=== PATIENT | male | born 1945 | race Caucasian/White ===

== ENCOUNTER 2016-05-18 06:25 | Emergency (ER) | payer OTHER ==
[2016-05-18 06:49] VITALS: BP 159/96; PULSE 105; TEMP 98.5; BMI 30.1
[2016-05-18] MEDS ORDERED: IBUPROFEN 600 MG TABLET (FP) PO ONE ×2 (07:53→08:05)
[2016-05-18] MEDS ORDERED: MAGNESIUM CITRATE 300 ML BOTTLE PO ONE (07:53)
--- NOTE | 2016-05-18 07:53 | PDOC ---
History of Present Illness - General History Source: Patient Exam Limitations: No Limitations - History of Present Illness Initial Comments: CHIEF COMPLAINT: 71 y/o afebrile male with PMH HLD, Urinary retention c/o constipation for the past 2 days. HISTORY OF PRESENT ILLNESS: The patient states he is passing stool but very small amounts. 2 days ago he had hemorrhoid surgery. He has taken 4 dulcolax tablets since the surgery. He states he is eating very little because he is scared of getting "backed up" and having to push. He also admits he is taking a narcotic pain medication for his post surgical pain. He denies fever, chills , n/v, CP, SOB, abd pain. He is passing gas. Vital signs on arrival are notable for pulse of 105. REVIEW OF SYSTEMS: GENERAL/CONSTITUTIONAL: No fever/chills. No weakness. No weight change. GASTROINTESTINAL: No nausea, vomiting, abd pain. +constipation. GENITOURINARY: No dysuria, frequency, or change in urination. MUSCULOSKELETAL: No joint or muscle swelling or pain. No neck or back pain. SKIN: No rash or easy bruising. NEUROLOGIC: No headache, vertigo, loss of consciousness, or loss of sensation. PHYSICAL EXAM: GENERAL: The patient is awake, alert, and fully oriented, in no acute distress. He is well appearing and ambulatory. HEAD: Normal with no signs of trauma. ENT: Pupils equal, round and reactive to light, extraocular movements intact, sclera anicteric, conjunctiva clear. Neck supple. LUNGS: Clear to auscultation bilaterally. Normal excursion. No respiratory distress or use of accessory muscles. CV: RRR, S1/S2, no MRG. Cap refill < 2 sec. ABDOMEN: Soft, non-distended, non-tender even to deep palpation, no hepatomegaly or splenomegaly, no masses. Normal BS x 4. EXTREMITIES: Normal range of motion, no edema. NEUROLOGICAL: Normal speech, normal gait. CN II-XII grossly intact. PSYCH: Normal mood, normal affect. SKIN: Warm, dry, normal turgor, no rashes or lesions noted. <Flores Moore - Last Filed: 05/18/16 07:57> <Therese Zhao - Last Filed: 05/22/16 08:51> - General Chief Complaint: Constipation Stated Complaint: CONSTIPATION Time Seen by Provider: 05/18/16 07:18 Past History - Past Medical History Hypercholesterolemia: Yes - Surgical History Abdominal Surgery: Yes (HERNIA) - Immunization History Immunization Up to Date: Yes - Psycho/Social/Smoking Cessation Hx Anxiety: Yes Suicidal Ideation: No Smoking Status: No Smoking History: Never smoked Number of Cigarettes Smoked Daily: 0 Hx Alcohol Use: Yes (weekends) Substance Use Type: None <Flores Moore - Last Filed: 05/18/16 07:57> <Therese Zhao - Last Filed: 05/22/16 08:51> - Past Medical History Allergies/Adverse Reactions: Allergies Allergy/AdvReac Type Severity Reaction Status Date / Time No Known Allergies Allergy Verified 05/18/16 06:44 Home Medications: Ambulatory Orders Silodosin [Rapaflo] 8 mg PO DAILY 01/30/14 Dutasteride [Avodart] 0.5 mg PO DAILY 03/29/14 Atorvastatin Ca [Lipitor] 10 mg PO HS 05/18/16 *Physical Exam - Vital Signs Last Vital Signs Temp Pulse Resp BP Pulse Ox 98.5 F 105 H 18 159/96 97 05/18/16 06:47 05/18/16 06:47 05/18/16 06:47 05/18/16 06:47 05/18/16 06:47 <Flores Moore - Last Filed: 05/18/16 07:57> - Vital Signs Last Vital Signs Temp Pulse Resp BP Pulse Ox 98.5 F 105 H 18 159/96 97 05/18/16 06:47 05/18/16 06:47 05/18/16 06:47 05/18/16 06:47 05/18/16 06:47 <Therese Zhao - Last Filed: 05/22/16 08:51> ED Treatment Course - Medications Given in the ED: ED Medications Discontinued Medications Generic Name Dose Route Start Last Admin Trade Name Freq PRN Reason Stop Dose Admin Ibuprofen 600 mg 05/18/16 07:53 05/18/16 08:19 Motrin - PO 05/18/16 07:54 600 mg ONCE ONE Administration Magnesium Citrate 300 ml 05/18/16 07:53 05/18/16 08:19 Citroma - PO 05/18/16 07:54 300 ml ONCE ONE Administration <Therese Zhao - Last Filed: 05/22/16 08:51> Medical Decision Making - Medical Decision Making A/P: 71 y/o male with ?constipation s/p hemorrhoid surgery 2 days ago. Informed the patient he has to eat in order to produce stool. Suggested he try to wean himself off of the narcotic pain medication, eat more, drink plenty of water and prune juice, continue taking dulcolax. Will give mag citrate in the ER. INstructed hiim to f/u with his surgeon if symptoms continue and return to the ER with any worsening or concerning symptoms. The patient verbalizes understanding of all instructions, has no further questions and is awaiting discharge. <Flores Moore - Last Filed: 05/18/16 07:57> *DC/Admit/Observation/Transfer <Flores Moore - Last Filed: 05/18/16 07:57> - Attestations Physician Attestion: I reviewed the case with the mid-level practitioner and agree with the mid- level practitioner's assessment, diagnosis and disposition. <Therese Zhao - Last Filed: 05/22/16 08:51> Diagnosis at time of Disposition: Constipation Qualifiers: Constipation type: unspecified constipation type Qualified Code(s): K59.00 - Constipation, unspecified - Discharge Dispostion Disposition: HOME Condition at time of disposition: Good - Referrals Referrals: Cherelle Caraballo MD [Primary Care Provider] - (Call today) - Patient Instructions Printed Discharge Instructions: DI for Constipation Additional Instructions: Discharge Instructions: -Take 600mg of Ibuprofen with food every 6 hours for pain -Continue taking dulcolax as prescribed -Drink plenty of fluids including water and prune juice to help keep bowels moving -Follow up with your doctor if symptoms continue -Return to the ER with any worsening or concerning symptoms Print Language: GUINEAN - Post Discharge Activity Work/School Note: Parent(s) Back to Work Note
[2016-05-18] MEDS ORDERED: MAGNESIUM CITRATE 300 ML BOTTLE ONE (08:07)
== END 2016-05-18 08:26 | disposition home or self-care (01) ==
LOC: JER 06:25
DX: K59.00 Constipation, unspecified (principal); E87.5 Hyperkalemia; F41.9 Anxiety disorder, unspecified
CPT/HCPCS: 99282-25

== ENCOUNTER 2016-11-05 07:56 | Day surgery (SDC) | payer OTHER ==
[2016-11-01 17:40] VITALS: BMI 29.2
[2016-11-05] MEDS ORDERED: PROPOFOL 20 ML ONE (13:11)
[2016-11-05] MEDS ORDERED: LEVOFLOXACIN 500 MG PREMIX BAG IVPB ONE (13:24)
[2016-11-05] MEDS ORDERED: DEXAMETHASONE SOD PHOSPHATE 4 MG/1 ML VIAL ONE (13:34)
[2016-11-05] MEDS ORDERED: ONDANSETRON 4 MG/2 ML VIAL IVPUSH PRN (13:59)
[2016-11-05] MEDS ORDERED: LACTATED RINGERS SOLUTION 1,000 ML IV SCH (14:00)
[2016-11-05] MEDS ORDERED: LEVOFLOXACIN 500 MG IVPB 100 ML IVPB ONE (14:41)
[2016-11-05 15:30] VITALS: TEMP 97.9
--- NOTE | 2016-11-05 16:40 | OP ---
Operative Note - Note: Operative Date: 11/05/16 Pre-Operative Diagnosis: bladder tumor involving right stefani-trigone and ureteral orifice Operation: cystoscopy/right ureteroscopy/trans urethral resection and vaporization of bladder tumor Findings: tumor imvolving right stefani-trigone with ureteral orifice involving an area of 8 + cm x 6+ cm Post-Operative Diagnosis: Same as Pre-op Surgeon: David Lozano Anesthesia: General Estimated Blood Loss (mls): 20
[2016-11-05 20:38] VITALS: BP 151/100; PULSE 72
--- NOTE | 2016-11-06 09:05 | OP ---
DATE OF OPERATION: 11/05/2016 PREOPERATIVE DIAGNOSIS: Bladder tumor involving the right hemitrigone and right ureteral orifice with a positive fluorescence in situ hybridization urine test. POSTOPERATIVE DIAGNOSIS: Bladder tumor involving the right hemitrigone and right ureteral orifice with a positive fluorescence in situ hybridization urine test. PROCEDURE: Cystoscopy, right ureteroscopy, transurethral resection and transurethral vaporization of bladder tumor utilizing bipolar system. ATTENDING PHYSICIAN: David Li MD ANESTHESIA: General. DESCRIPTION OF OPERATION: The patient was brought to the operating room, placed in supine position on the operating room table. General anesthesia and antibiotics were administered. The patient was then placed in the dorsal lithotomy position and prepped and draped in the usual sterile manner. Cystoscopy was performed. A sessile tumor was noted involving the right hemitrigone to the right sidewall and extending posterior to the posterior wall of the bladder. The right ureteral orifice is involved. Attempts at identifying the right ureteral orifice were unsuccessful. Ureteroscopy was performed, and the right ureteral orifice was ultimately found utilizing a wire. The wire was passed proximally. There was no evidence of involvement of the right distal ureteral orifice. At this point, the resection of the bladder tumor was performed. Resection was performed with care as to maintain the integrity of the right ureteral orifice. Once adequate tissue samples had been retrieved, vaporization of the bladder tumor was performed. An area of 8-10 cm x 8-10 cm was vaporized to the level of the deep muscle tissue. No evidence of perforation was noted. The patient tolerated the procedure very well. The patient was left with a 24-[place] catheter to straight drainage. The patient will be observed in the recovery room for possible discharge home. Estimated blood loss was less than 20 mL. Tariq [id number]
--- NOTE | 2016-11-07 12:27 | PATH ---
Surgical Pathology Report Patient Name: ANGELIKA SEXTON [facility]. Rec. #: [id number] /Age/Gender: 1945 (Age: 71) / M Account: [id number] Location: [facility] SURGICAL Taken: 11/06/2016 Received: 11/06/2016 Reported: 11/07/2016 Physicians: David Lozano Specimen(s) Received BLADDER TUMOR Clinical History Bladder tumor Final Diagnosis BLADDER, TUMOR, TUR: SCANT FRAGMENTS OF HYPERPLASTIC UROTHELIAL MUCOSA WITH FOCAL PAPILLARY STRUCTURE (SEE COMMENT). 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 No lamina propria invasion is identified. Muscularis propria (detrusor) is present, free of carcinoma. Clinical, cystoscopic correlations and follow up are suggested. Electronically Signed Omer Gregorio M.D. Gross Description Received in formalin labeled "bladder tissue" are 3 coleman soft tissue fragments ranging from 0.3-0.6 cm in greatest dimension. The specimens are submitted in toto in one cassette. 11/06/201611/06/2016
== END 2016-11-05 17:15 | disposition home or self-care (01) ==
LOC: JASU-SURG 07:56
PROVIDERS: ATTEND Urology
PROC: 0T5B8ZZ Destruction of Bladder, Via Natural or Artificial Opening Endoscopic (ICD-10-PCS; principal; 2016-11-05 10:00)
DX: D41.4 Neoplasm of uncertain behavior of bladder (principal)
CPT/HCPCS: 88307-TC; 94760

== ENCOUNTER 2016-11-10 21:46 | Emergency (ER) | payer OTHER ==
[2016-11-10 21:53] VITALS: BP 159/99; PULSE 85; TEMP 98.1; BMI 29.2
--- NOTE | 2016-11-10 21:58 | PDOC ---
Attending Attestation - Resident Resident Name: JoeGlenn ugalde - ED Attending Attestation I have performed the following: I have examined & evaluated the patient, The case was reviewed & discussed with the resident, I agree w/resident's findings & plan, Exceptions are as noted - HPI HPI: 11/11/16 00:16 71 yo M presenting to the ER with a complaint of abdominal and right flank pain No fevers or chills No abdominal distention No vomiting No diarrhea POD #5 s/p resection of bladder tumor (transuretheral) - Physicial Exam PE: 11/11/16 00:17 On examination Pt reports R CVA pain, no tenderness elicited on examination No abd tenderness to palpation (s/p Morphine) RRR CTA - Medical Decision Making 11/11/16 00:17 Will do: Labs including trop and lactate CT abd and pelvis Contact Urology Laboratory Tests 11/10/16 11/10/16 11/10/16 22:30 22:30 22:50 WBC 9.4 Hgb 15.3 Hct 45.6 Plt Count 179 Sodium 136 Potassium 4.3 Chloride 96 L Carbon Dioxide 31 BUN 21 H D Creatinine 1.0 Random Glucose 125 H D Lactic Acid 1.2 Creatine Kinase 75 Troponin I < 0.02 11/11/16 01:20 EXAM: CT ABDOMEN AND PELVIS with contrast HISTORY:Generalized abdominal pain after recent cystoscopy COMPARISON: None. FINDINGS:Lung bases are clear. The visualized cardiac chambers are normal size and configuration. There is mild right hydronephrosis no ureteral stones. Normal liver, gallbladder, pancreas, spleen, adrenal glands and left kidney. The stomach and abdominal small and large bowel are normal. There is no aortic aneurysm. There is no significant retroperitoneal lymphadenopathy. The pelvic small and large bowel are normal. The appendix is normal. The urinary bladder demonstrate irregular wall thickening which could indicate cystitis or possibly muscle hypertrophy from partial outlet obstruction. The prostate gland is moderately enlarged. No pelvic free fluid is identified. There is no significant pelvic lymphadenopathy. IMPRESSION: Bladder wall thickening may be secondary to cystitis or muscular hypertrophy from partial outlet obstruction. Moderate prostate enlargement. Mild right hydronephrosis could indicate a recently passed stone or possibly be secondary to edema at the UVJ. THIS DOCUMENT HAS BEEN ELECTRONICALLY SIGNED Ishan Chavez MD 11/11/2016 00:54 EST Case reviewed with Dr. Jean Li who states patient can be discharged to home Follow up in the office
[2016-11-10] MEDS ORDERED: SODIUM CHLORIDE 1,000 ML IV STA (22:11)
[2016-11-10] MEDS ORDERED: morphine CARPU-JECT 4 MG/1 ML DISP.SYRIN IVPUSH ONE ×2 (22:11→23:48)
[2016-11-10] MEDS ORDERED: ONDANSETRON 4 MG/2 ML VIAL IVPB ONE (22:11)
--- NOTE | 2016-11-10 22:24 | PDOC ---
History of Present Illness - General Chief Complaint: Pain Stated Complaint: STOMACH PAIN Time Seen by Provider: 11/10/16 21:54 History Source: Patient Exam Limitations: Language Barrier - History of Present Illness Initial Comments: 11/10/16 22:19 History taken through andorran phone smasher hand. Patient is a 71M with history of cystoscopy and ureteroscopy 5 days ago and HLD here today complaining of generalized abdominal pain for the last two hours. He is also complaining of associated nausea and non-billious, non-bloody vomiting. He states that the pain came on after a meal. The pain started off as a minor pain, then slowly got worse. He states that moving does not make his pain worse. He denies shortness of breath, chest pain, and any history of htn or other cardiac disorders. He endorses burning with urination for the past day after removal of his catheter. Past History - Past Medical History Allergies/Adverse Reactions: Allergies Allergy/AdvReac Type Severity Reaction Status Date / Time No Known Allergies Allergy Verified 11/10/16 21:52 Home Medications: Ambulatory Orders Silodosin [Rapaflo] 8 mg PO DAILY 01/30/14 Dutasteride [Avodart] 0.5 mg PO DAILY 03/29/14 Atorvastatin Ca [Lipitor] 10 mg PO HS 05/18/16 Acetaminophen W/ Codeine #3 [Tylenol # 3 -] 1 tab PO Q4H #20 tablet MDD 6 Levofloxacin [Levaquin -] 500 mg PO DAILY #7 tablet 11/05/16 Anemia: No Asthma: No Cancer: No Cardiac Disorders: No CVA: No COPD: No CHF: No Dementia: No Diabetes: No GI Disorders: No Disorders: No HTN: No Hypercholesterolemia: Yes Liver Disease: No Seizures: No Thyroid Disease: No - Surgical History Abdominal Surgery: Yes (HERNIA) Appendectomy: No Cardiac Surgery: No Cholecystectomy: No Lung Surgery: No Neurologic Surgery: No Orthopedic Surgery: No - Immunization History Immunization Up to Date: Yes - Psycho/Social/Smoking Cessation Hx Anxiety: Yes Suicidal Ideation: No Smoking Status: No Smoking History: Never smoked Number of Cigarettes Smoked Daily: 0 Hx Alcohol Use: Yes (weekends) Drug/Substance Use Hx: No Substance Use Type: None Hx Substance Use Treatment: No Review of Systems - Review of Systems Comments:: 11/10/16 22:24 GENERAL/CONSTITUTIONAL: No fever or chills. No weakness. HEAD, EYES, EARS, NOSE AND THROAT: No change in vision. No sore throat. CARDIOVASCULAR: No chest pain or shortness of breath RESPIRATORY: No cough, wheezing. GASTROINTESTINAL: Positive for nausea and vomiting. Negative diarrhea or constipation. GENITOURINARY: Positive for burning with urination after surgery. SKIN: No rash NEUROLOGIC: No headache, vertigo, loss of consciousness, or change in strength/ sensation. ALLERGIC/IMMUNOLOGIC: No hives or skin allergy. *Physical Exam - Vital Signs Last Vital Signs Temp Pulse Resp BP Pulse Ox 98.1 F 85 18 159/99 99 11/10/16 21:48 11/10/16 21:48 11/10/16 21:48 11/10/16 21:48 11/10/16 21:48 - Physical Exam Comments: 11/10/16 22:33 GENERAL: Awake, alert, and fully oriented, in no acute distress HEAD: No signs of trauma, normocephalic, atraumatic EYES: PERRLA, EOMI, sclera anicteric, conjunctiva clear ENT: Auricles normal inspection, hearing grossly normal, nares patent, oropharynx clear without exudates. Dry mucosa LUNGS: No distress, speaks full sentences, clear to auscultation bilaterally HEART: Regular rate and rhythm, normal S1 and S2, no murmurs, rubs or gallops, peripheral pulses normal and equal bilaterally. ABDOMEN: Nontender, normoactive bowel sounds. No guarding, no rebound. No masses. No CVA tenderness EXTREMITIES: Normal inspection, Normal range of motion, no edema. No clubbing or cyanosis. NEUROLOGICAL: Cranial nerves II through XII grossly intact. Normal speech, normal gait, no focal sensorimotor deficits SKIN: Warm, Dry, no rashes or lesions noted. ED Treatment Course - LABORATORY CBC & Chemistry Diagram: 11/10/16 22:30 11/10/16 22:30 Medical Decision Making - Medical Decision Making 11/10/16 22:36 Patient is a 71M with history of a bladder tumor with cystoscopy 5 days ago and HLD here today complaining of diffuse abdominal pain. Hypertensive to 159 systolic, not on any blood pressure medication. Vital signs otherwise normal and stable. Pain is out of proportion to exam. Differential diagnosis includes, but is not limited to: UTI, SBO, Gastritis and mesenteric ischemia. Will evaluate with abdominal labs, ekg, trop and CT with contrast. 11/10/16 23:35 EKG shows normal sinus rhythm, normal rate, normal axis. No st elevations or t- wave inversions or depressions. QTc = 440. 11/10/16 23:48 Patient is complaining of pain now in right "kidney". Upright, conversant. Will give morphine for pain control. 11/11/16 01:32 Laboratory Tests 11/10/16 11/10/16 11/10/16 22:30 22:50 23:41 Sodium 136 Potassium 4.3 Chloride 96 L Carbon Dioxide 31 Anion Gap 9 BUN 21 H D Creatinine 1.0 Creat Clearance w eGFR > 60 Random Glucose 125 H D Lactic Acid 1.2 Calcium 9.0 Total Bilirubin 0.4 AST 19 ALT 26 D Alkaline Phosphatase 73 Creatine Kinase 75 Troponin I < 0.02 Total Protein 7.4 Albumin 3.5 Lipase 132 Ur Leukocyte Esterase Trace Urine RBC 41 Urine WBC 10 CMP shows normal lactic acid, normal Cr, neg trop, neg ua. CT Abdomen - Bladder wall thickening may be secondary to cystitis or muscular hypertrophy from partial outlet obstruction. - Moderate prostate enlargement. - Mild right hydronephrosis could indicate a recently passed stone or possibly be secondary to edema at the UVJ Will consult patient's urologist, Blake. 11/11/16 01:48 Patient discussed with Blake, agrees with plan to discharge. Pain controlled. Patient given return precautions, ambulatory, alert and oriented at discharge. *DC/Admit/Observation/Transfer Diagnosis at time of Disposition: Abdominal pain Qualifiers: Abdominal location: generalized Qualified Code(s): R10.84 - Generalized abdominal pain - Discharge Dispostion Disposition: HOME Condition at time of disposition: Good Admit: No - Referrals Referrals: David Lozano MD [Staff Physician] - - Patient Instructions Printed Discharge Instructions: DI for Abdominal Pain-Adult
[2016-11-10] MEDS ORDERED: morphine CARPU-JECT 4 MG/1 ML DISP.SYRIN ONE (22:26)
[2016-11-10 23:24] LABS: BASOPHIL 0.3 % (0-2.0); EOSINOPHIL 1.4 % (0-4.5); MCH 30.1 pg (25.7-33.7); MCHC 33.6 g/dl (32.0-35.9); MEAN CELL VOLUME 89.4 fl (80-96); MEAN PLT VOLUME 10.3 fl (7.5-11.1); NEUTROPHILS 65.2 % (42.8-82.8); PLATELET COUNT 179 K/MM3 (134-434); RDW 14.1 % (11.9-15.9); WHITE BLOOD COUNT 9.4 K/mm3 (4.0-10.0)
[2016-11-10 23:57] LABS: URINE APPEARANCE CLEAR; URINE BILIRUBIN NEGATIVE (NEGATIVE); URINE BLOOD 2+ (NEGATIVE); URINE COLOR STRAW; URINE GLUCOSE (UA) NEGATIVE (NEGATIVE); URINE KETONE TRACE (NEGATIVE); URINE LEUK ESTERASE TRACE (NEGATIVE); URINE NITRITE NEGATIVE (NEGATIVE); URINE PROTEIN NEGATIVE (NEGATIVE); URINE UROBILINOGEN NEGATIVE mg/dL (0.2-1.0)
[2016-11-10 23:58] LABS: ALBUMIN 3.5 g/dl (3.4-5.0); ANION GAP 9 (8-16); BILIRUBIN,TOTAL 0.4 mg/dL (0.2-1.0); CO2 31 mmol/L (21-32); GLUCOSE,RANDOM 125 mg/dL (74-106); SGOT/AST 19 U/L (15-37); SGPT/ALT 26 U/L (12-78); TOT PROT 7.4 g/dl (6.4-8.2)
[2016-11-11] LABS: ALK PHOS 73 U/L (45-117); CPK 75 IU/L (39-308); TROPONIN I < 0.02 ng/ml (0.00-0.05)
[2016-11-11] MEDS ORDERED: morphine CARPU-JECT 4 MG/1 ML DISP.SYRIN ONE (00:04)
[2016-11-11 00:22] LABS: URINE MUCUS RARE; URINE RBC 41 /hpf (0-3); URINE WBC 10 /hpf (3-5)
--- NOTE | 2016-11-11 13:22 | EKG ---
Test Reason : Blood Pressure : / mmHG Vent. Rate : 076 BPM Atrial Rate : 076 BPM P-R Int : 164 ms QRS Dur : 094 ms QT Int : 388 ms P-R-T Axes : 063 -36 036 degrees QTc Int : 436 ms NORMAL SINUS RHYTHM LEFT AXIS DEVIATION CONSISTENT WITH LEFT ANTERIOR FASCICULAR BLOCK INCOMPLETE RIGHT BUNDLE BRANCH BLOCK ABNORMAL ECG WHEN COMPARED WITH ECG OF 02-APR-2014 00:09, NO SIGNIFICANT CHANGE WAS FOUND REPEAT EKG IF CLINICALLY INDICATED Confirmed by ELIZABETH CURTIS MD ([id number]) on 11/11/2016 1:22:46 PM Referred By: Confirmed By:ELIZABETH CURTIS MD
== END 2016-11-11 02:15 | disposition home or self-care (01) ==
LOC: JER 21:46
PROC: 3E033NZ Introduction of Analgesics, Hypnotics, Sedatives into Peripheral Vein, Percutaneous Approach (ICD-10-PCS; principal; 2016-11-10)
PROC: 3E033GC Introduction of Other Therapeutic Substance into Peripheral Vein, Percutaneous Approach (ICD-10-PCS; 2016-11-10)
DX: R10.84 Generalized abdominal pain (principal); N40.0 Benign prostatic hyperplasia without lower urinary tract symptoms; Z98.890 Other specified postprocedural states
CPT/HCPCS: 36415; 74177-TC; 80053; 81003; 81015; 83605; 83690; 84484; 85025; 93005; 93010; 99281-25; 99282-25

== ENCOUNTER 2016-11-11 18:28 | Emergency (ER) | payer OTHER ==
[2016-11-11 18:46] VITALS: BP 150/96; PULSE 91; TEMP 99.1; BMI 29.2
--- NOTE | 2016-11-11 19:04 | PDOC ---
Patient Follow-up (Call Back) - Post ED Follow - Up Reason for Call Back: Radiology (CT of abdomen and pelvis with contrast from last night 11/11/[address] Irwin revealed moderate right renal hydronephrosis with mild to moderate right hydroureter and without evidence of your re-thrust stone. This could be related to urethrovesicle junction edema. No stones seen and urinary bladder. Harshly distended urinary bladder with thickening of its wall, that may be on the basis of cystitis. There is a regular thickening of its posterior and right posterior lateral wall for which further evaluation is recommended to rule out an infiltrative process. Per Dr. Irwin patient presently is in waiting area to be seen will give to attending physician to review. note from Jean Frost from 11/05/16 Pre-Operative Diagnosis : bladder tumor involving right stefani-trigone and ureteral orifice Operation: cystoscopy/right ureteroscopy/trans urethral resection and vaporization of bladder tumor Findings: tumor imvolving right stefani-trigone with ureteral orifice involving an area of 8+ cm x 6+ cm. Discussed these findings with Dr. Elizabeth attending in ED.)
[2016-11-11] MEDS ORDERED: LACTULOSE 20 GM/30 ML UDC (FOR ORAL USE ONLY) PO ONE (19:50)
[2016-11-11] MEDS ORDERED: LACTULOSE 20 GM/30 ML UDC (FOR ORAL USE ONLY) ONE (19:52)
[2016-11-11] MEDS ORDERED: GLYCERIN 1 RECTAL SUPPOSITORY, ADULT PR ONE (20:57)
[2016-11-11] MEDS ORDERED: ONDANSETRON 4 MG TABLET PO ONE (20:58)
[2016-11-11] MEDS ORDERED: ONDANSETRON *ODT* 4 MG TABLET ONE (21:02)
--- NOTE | 2016-11-11 21:22 | PDOC ---
History of Present Illness - General History Source: Patient Exam Limitations: No Limitations - History of Present Illness Initial Comments: 11/11/16 21:26 The patient is a 71-year-old male with a significant past medical history of HLD , and ureteroscopy and cystoscopy 6 days ago, and presents to the emergency department with generalized abdominal pain and constipation for 3 days. He was in the ED at [facility] yesterday for diffuse abdominal pain. He reports the pain is a 5/10 in severity, and radiates to the lower back. He state he took Dulcolax this morning with no significant relief, but notes that he was able to pass gas. He reports of associated nausea, and admits to dry heaving today approximately 20 times. He denies vomiting today. The patient denies chest pain, shortness of breath, headache and dizziness. The patient denies fever, chills, vomit, and diarrhea. The patient denies any urinary changes. Allergies: NKDA Past Surgical History: Abdominal surgery (hernia) Social History: Denies any toxic habits <Keyanna Mooney - Last Filed: 11/11/16 21:26> <Gabi Hu - Last Filed: 11/12/16 05:10> - General Chief Complaint: Pain, Acute Stated Complaint: ABD PAIN Time Seen by Provider: 11/11/16 19:17 Past History <Keyanna Mooney - Last Filed: 11/11/16 21:26> - Past Medical History Anemia: No Asthma: No Cancer: No Cardiac Disorders: No CVA: No COPD: No CHF: No Dementia: No Diabetes: No GI Disorders: No Disorders: No HTN: No Hypercholesterolemia: Yes Liver Disease: No Seizures: No Thyroid Disease: No Other medical history: ENLARGED PROSTATE - Surgical History Abdominal Surgery: Yes (HERNIA) Appendectomy: No Cardiac Surgery: No Cholecystectomy: No Lung Surgery: No Neurologic Surgery: No Orthopedic Surgery: No - Immunization History Immunization Up to Date: Yes - Psycho/Social/Smoking Cessation Hx Anxiety: Yes Suicidal Ideation: No Smoking Status: No Smoking History: Never smoked Number of Cigarettes Smoked Daily: 0 Hx Alcohol Use: Yes (weekends) Drug/Substance Use Hx: No Substance Use Type: None Hx Substance Use Treatment: No <Gabi Hu - Last Filed: 11/12/16 05:10> - Past Medical History Allergies/Adverse Reactions: Allergies Allergy/AdvReac Type Severity Reaction Status Date / Time No Known Allergies Allergy Verified 11/11/16 18:41 Home Medications: Ambulatory Orders Silodosin [Rapaflo] 8 mg PO DAILY 01/30/14 Atorvastatin Ca [Lipitor] 10 mg PO HS 05/18/16 Polyethylene Glycol 3350 [Miralax (For Daily Use) -] 17 gm PO DAILY #1 bottle Review of Systems - Review of Systems Able to Perform ROS?: Yes Comments:: 11/11/16 21:26 CONSTITUTIONAL: Absent: fever, chills, diaphoresis, generalized weakness, malaise, loss of appetite HEENT: Absent: rhinorrhea, nasal congestion, throat pain, throat swelling, difficulty swallowing, mouth swelling, ear pain, eye pain, visual changes CARDIOVASCULAR: Absent: chest pain, syncope, palpitations, irregular heart rate, lightheadedness , peripheral edema RESPIRATORY: Absent: cough, shortness of breath, dyspnea with exertion, orthopnea, wheezing, stridor, hemoptysis GASTROINTESTINAL: Present: (+) abdominal pain, (+) nausea, (+) constipation Absent: abdominal distension, vomiting, diarrhea, melena, hematochezia GENITOURINARY: Absent: frequency, urgency, hesitancy, hematuria, flank pain, genital pain MUSCULOSKELETAL: Absent: myalgia, arthralgia, joint swelling SKIN: Absent: rash, itching, pallor HEMATOLOGIC/IMMUNOLOGIC: Absent: easy bleeding, easy bruising, lymphadenopathy, frequent infections ENDOCRINE: Absent: unexplained weight gain, unexplained weight loss, heat intolerance, cold intolerance NEUROLOGIC: Absent: headache, focal weakness or paresthesias, dizziness, unsteady gait, seizure, mental status changes, bladder or bowel incontinence PSYCHIATRIC: Absent: anxiety, depression, suicidal or homicidal ideation, hallucinations. <Keyanna Mooney - Last Filed: 11/11/16 21:26> *Physical Exam - Vital Signs Last Vital Signs Temp Pulse Resp BP Pulse Ox 99.1 F 91 H 19 150/96 95 11/11/16 18:41 11/11/16 18:41 11/11/16 18:41 11/11/16 18:41 11/11/16 18:41 - Physical Exam Comments: 11/11/16 21:27 GENERAL: Well developed, well nourished. Awake and alert. No acute distress. HEENT: Normocephalic, atraumatic. PERRLA, EOMI. No conjunctival pallor. Sclera are non- icteric. Moist mucous membranes. Oropharynx is clear. NECK: Supple. Full ROM. No JVD. Carotid pulses 2+ and symmetric, without bruits. No thyromegaly. No lymphadenopathy. CARDIOVASCULAR: Regular rate and rhythm. No murmurs, rubs, or gallops. Distal pulses are 2+ and symmetric. PULMONARY: No evidence of respiratory distress. Lungs clear to auscultation bilaterally. No wheezing, rales or rhonchi. ABDOMINAL: Soft. Non-tender. Non-distended. No rebound or guarding. No organomegaly. Normoactive bowel sounds. MUSCULOSKELETAL Normal range of motion at all joints. No bony deformities or tenderness. No CVA tenderness. EXTREMITIES: No cyanosis. No clubbing. No edema. No calf tenderness. SKIN: Warm and dry. Normal capillary refill. No rashes. No jaundice. NEUROLOGICAL: Alert, awake, appropriate. Cranial nerves 2-12 intact. No deficits to light touch and temperature in face, upper extremities and lower extremities. No motor deficits in the in face, upper extremities and lower extremities. Normoreflexic in the upper and lower extremities. Normal speech. Toes are down- going bilaterally. Gait is normal without ataxia. PSYCHIATRIC: Cooperative. Good eye contact. Appropriate mood and affect. <Keyanna Mooney - Last Filed: 11/11/16 21:26> - Vital Signs Last Vital Signs Temp Pulse Resp BP Pulse Ox 99.1 F 91 H 19 150/96 95 11/11/16 18:41 11/11/16 18:41 11/11/16 18:41 11/11/16 18:41 11/11/16 18:41 <Gabi Hu - Last Filed: 11/12/16 05:10> ED Treatment Course - Medications Given in the ED: ED Medications Discontinued Medications Generic Name Dose Route Start Last Admin Trade Name Freq PRN Reason Stop Dose Admin Lactulose 20 gm 11/11/16 19:50 11/11/16 19:55 Cephulac (Oral Use) PO 11/11/16 19:51 20 gm ONCE ONE Administration Ondansetron HCl 4 mg 11/11/16 20:58 11/11/16 21:08 Zofran - PO 11/11/16 20:59 4 mg ONCE ONE Administration <Keyanna Mooney - Last Filed: 11/11/16 21:26> - Medications Given in the ED: ED Medications Discontinued Medications Generic Name Dose Route Start Last Admin Trade Name Michelle PRN Reason Stop Dose Admin Lactulose 20 gm 11/11/16 19:50 11/11/16 19:55 Cephulac (Oral Use) PO 11/11/16 19:51 20 gm ONCE ONE Administration Ondansetron HCl 4 mg 11/11/16 20:58 11/11/16 21:08 Zofran - PO 11/11/16 20:59 4 mg ONCE ONE Administration <Gabi Hu - Last Filed: 11/12/16 05:10> Medical Decision Making - Medical Decision Making 11/12/16 05:08 Pt had been taking Tyl #3 after his urinary procedure, and he was here yesterday for abd pain and was treated with morphine and now comes with constipation. Pt's exam is normal; abd soft and NT; he has constipation. Afebrile and VSS. Pt given lactulose and will go home with miralax; follow with PMD <Gabi Hu - Last Filed: 11/12/16 05:10> *DC/Admit/Observation/Transfer - Attestations Scribe Attestion: 11/11/16 21:27 Documentation prepared by Keyanna Mooney, acting as medical appointment clerk for Gabi Hu MD. <Keyanna Mooney - Last Filed: 11/11/16 21:26> - Discharge Dispostion Admit: No <Gabi Hu - Last Filed: 11/12/16 05:10> Diagnosis at time of Disposition: Constipation - Discharge Dispostion Disposition: HOME Condition at time of disposition: Improved - Prescriptions Prescriptions: Polyethylene Glycol 3350 [Miralax (For Daily Use) -] 17 gm PO DAILY #1 bottle - Patient Instructions Printed Discharge Instructions: DI for Constipation, Increased Dietary Fiber May Improve Constipation Conditions With Pelvic Roberth Additional Instructions: PRUNE JUICE Print Language: KOREAN
== END 2016-11-11 22:02 | disposition home or self-care (01) ==
LOC: JER 18:28
DX: K59.09 Other constipation (principal); N13.30 Unspecified hydronephrosis
CPT/HCPCS: 99281-25

== ENCOUNTER 2016-11-12 16:11 | Emergency (ER) | payer OTHER ==
[2016-11-12 16:17] VITALS: BP 137/87; PULSE 91; TEMP 98.9; BMI 28.8
--- NOTE | 2016-11-12 17:10 | PDOC ---
*Physical Exam - Vital Signs Last Vital Signs Temp Pulse Resp BP Pulse Ox 98.9 F 91 H 18 137/87 98 11/12/16 16:15 11/12/16 16:15 11/12/16 16:15 11/12/16 16:15 11/12/16 16:15 ED Treatment Course - LABORATORY CBC & Chemistry Diagram: 11/12/16 18:51 11/12/16 18:51 Medical Decision Making - Medical Decision Making 11/12/16 17:10 Pt seen by the Advanced Practice Provider under my direct supervision Ancillary studies reviewed I agree with plan as outlined by the Advanced Practice Provider LISA Babb *DC/Admit/Observation/Transfer Diagnosis at time of Disposition: Constipation - Discharge Dispostion Disposition: HOME Condition at time of disposition: Stable - Prescriptions Prescriptions: Lactulose (Oral Use) [Cephulac -] 20 gm PO DAILY PRN #1 bottle PRN Reason: Constipation - Referrals Referrals: ElDavid Bales MD [Staff Physician] - Cherelle Caraballo MD [Primary Care Provider] - - Patient Instructions Printed Discharge Instructions: DI for Constipation Additional Instructions: Grisel se discuti, debe continuar con el Dr. Guillermo srinivasan. Si usted desarrolla cualquier nuevo dolor abdominal, vmitos, fiebre, escalofros o cualquier nuevo o empeoramiento de los sntomas, por favor regrese a la anne marie de emergencias. Print Language: SINHALA
--- NOTE | 2016-11-12 17:56 | PDOC ---
History of Present Illness - General Chief Complaint: Constipation Stated Complaint: UNABLE TO MAKE BOWEL MOVEMENT Time Seen by Provider: 11/12/16 16:38 History Source: Patient Exam Limitations: No Limitations - History of Present Illness Travel History: No Initial Comments: 11/12/16 17:51 71 yr old male presents to the ED with complaints of continual constipation despite coming twice a the ER giving medication to alleviate symptoms. Patient states had a CT done yesterday which showed right hydronephrosis and hydroureter. Patient states has had no difficulty urinating and denies any lower suprapubic pressure or right CVA tenderness. 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 Patient denies nausea, fever, chills decreased flatulence, or change in appetite. Timing/Duration: reports: constant, getting worse Quality: reports: moderate, fullness Abdominal Pain Onset Location: reports: generalized abdomen Pain Radiation: reports: no radiation Activities at Onset: reports: none Aggravating Factors: improves with: None Alleviating Factors: improves with: None Past History - Past Medical History Allergies/Adverse Reactions: Allergies Allergy/AdvReac Type Severity Reaction Status Date / Time No Known Allergies Allergy Verified 11/12/16 16:15 Home Medications: Ambulatory Orders Silodosin [Rapaflo] 8 mg PO DAILY 01/30/14 Atorvastatin Ca [Lipitor] 10 mg PO HS 05/18/16 Lactulose (Oral Use) [Cephulac -] 20 gm PO DAILY PRN #1 bottle 11/12/16 Anemia: No Asthma: No Cancer: No Cardiac Disorders: No CVA: No COPD: No CHF: No Dementia: No Diabetes: No GI Disorders: No Disorders: No HTN: No Hypercholesterolemia: Yes Liver Disease: No Seizures: No Thyroid Disease: No - Surgical History Abdominal Surgery: Yes (HERNIA) Appendectomy: No Cardiac Surgery: No Cholecystectomy: No Lung Surgery: No Neurologic Surgery: No Orthopedic Surgery: No - Immunization History Immunization Up to Date: Yes - Psycho/Social/Smoking Cessation Hx Anxiety: Yes Suicidal Ideation: No Smoking Status: No Smoking History: Never smoked Number of Cigarettes Smoked Daily: 0 Hx Alcohol Use: No Drug/Substance Use Hx: No Substance Use Type: None Hx Substance Use Treatment: No Patient Lives Alone: No Review of Systems - Review of Systems Able to Perform ROS?: Yes Constitutional: No: Symptoms Reported HEENTM: No: Symptoms Reported Respiratory: No: Symptoms reported Cardiac (ROS): No: Symptoms Reported ABD/GI: Yes: Abdominal Distended, Constipated : No: Symptoms Reported Musculoskeletal: No: Symptoms Reported Integumentary: No: Symptoms Reported Neurological: No: Symptoms reported Hematologic/Lymphatic: No: Symptoms Reported *Physical Exam - Vital Signs Last Vital Signs Temp Pulse Resp BP Pulse Ox 98.9 F 91 H 18 137/87 98 11/12/16 16:15 11/12/16 16:15 11/12/16 16:15 11/12/16 16:15 11/12/16 16:15 - Physical Exam General Appearance: Yes: Nourished, Appropriately Dressed. No: Apparent Distress Respiratory/Chest: positive: Lungs Clear, Normal Breath Sounds. negative: Respiratory Distress, Accessory Muscle Use Cardiovascular: positive: Regular Rhythm, Regular Rate. negative: Murmur Gastrointestinal/Abdominal: positive: Normal Bowel Sounds, Soft, Distended, Tenderness (generalized). negative: Mass Musculoskeletal: negative: CVA Tenderness Extremity: positive: Normal Capillary Refill. negative: Pedal Edema Integumentary: positive: Normal Color, Warm, Moist Neurologic: positive: Motor Strength 5/5 (ambulatory) ED Treatment Course - LABORATORY CBC & Chemistry Diagram: 11/12/16 18:51 11/12/16 18:51 - RADIOLOGY Radiology Studies Ordered: Category Date Time Status KIDNEY / RENAL US [US] Stat Ultrasound 11/12/16 17:41 Ordered Medical Decision Making - Medical Decision Making 11/12/16 17:51 Patient states on 11/05 had a bladder tumor removal which he states was negative for cancer and states had a López catheter removed on Saturday by Dr.El meredith. Since patient exam has generalized abdominal tenderness with distention with positive bowel sounds 4. Patient be given a soapsuds enema along with CBC, comp and urinalysis . to assess for worsening hydronephrosis of kidney ultrasound was also ordered. 11/12/16 17:56 *DC/Admit/Observation/Transfer Diagnosis at time of Disposition: Constipation - Discharge Dispostion Disposition: HOME Condition at time of disposition: Stable - Prescriptions Prescriptions: Lactulose (Oral Use) [Cephulac -] 20 gm PO DAILY PRN #1 bottle PRN Reason: Constipation - Referrals Referrals: Jean-David Meredith MD [Staff Physician] - Cherelle Caraballo MD [Primary Care Provider] - - Patient Instructions Printed Discharge Instructions: DI for Constipation Additional Instructions: Grisel se discuti, debe continuar con el Dr. Guillermo srinivasan. Si usted desarrolla cualquier nuevo dolor abdominal, vmitos, fiebre, escalofros o cualquier nuevo o empeoramiento de los sntomas, por favor regrese a la anne marie de emergencias. Print Language: ICELANDIC
[2016-11-12 18:55] LABS: BASOPHIL 0.4 % (0-2.0); EOSINOPHIL 0.8 % (0-4.5); MCH 30.5 pg (25.7-33.7); MEAN CELL VOLUME 89.7 fl (80-96); MEAN PLT VOLUME 9.5 fl (7.5-11.1); NEUTROPHILS 68.3 % (42.8-82.8); PLATELET COUNT 178 K/MM3 (134-434); WHITE BLOOD COUNT 9.7 K/mm3 (4.0-10.0)
[2016-11-12 18:56] LABS: URINE APPEARANCE SLCLOUDY; URINE BILIRUBIN NEGATIVE (NEGATIVE); URINE BLOOD 3+ (NEGATIVE); URINE COLOR LTYELLOW; URINE GLUCOSE (UA) NEGATIVE (NEGATIVE); URINE KETONE NEGATIVE (NEGATIVE); URINE NITRITE NEGATIVE (NEGATIVE); URINE PROTEIN NEGATIVE (NEGATIVE); URINE UROBILINOGEN NEGATIVE mg/dL (0.2-1.0)
[2016-11-12 18:58] LABS: URINE LEUK ESTERASE 2+ (NEGATIVE)
[2016-11-12 18:59] LABS: URINE BACTERIA RARE /hpf (NONE SEEN); URINE MUCUS RARE; URINE RBC 22 /hpf (0-3); URINE WBC 9 /hpf (3-5)
[2016-11-12 19:25] LABS: ALBUMIN 3.8 g/dl (3.4-5.0); ANION GAP 8 (8-16); BILIRUBIN,TOTAL 0.5 mg/dL (0.2-1.0); CALCIUM 9.2 mg/dL (8.5-10.1); CO2 31 mmol/L (21-32); CREATININE 1.2 mg/dL (0.7-1.3); GLUCOSE,RANDOM 103 mg/dL (74-106); SGOT/AST 15 U/L (15-37); SGPT/ALT 24 U/L (12-78); TOT PROT 7.8 g/dl (6.4-8.2)
[2016-11-12 19:26] LABS: ALK PHOS 82 U/L (45-117)
--- NOTE | 2016-11-12 20:12 | PDOC ---
*Physical Exam - Vital Signs Last Vital Signs Temp Pulse Resp BP Pulse Ox 98.9 F 91 H 18 137/87 98 11/12/16 16:15 11/12/16 16:15 11/12/16 16:15 11/12/16 16:15 11/12/16 16:15 - Physical Exam Comments: 11/12/16 20:10 Sign-out received from outgoing ER provider Holley. Pt interviewed and examined. Ancillary studies reviewed. Awaiting kidney/renal ultrasound. 11/12/16 21:43 Ultrasound results indicate improvement of right sided hydronephrosis. Discussed results with patient and that he must follow up with Dr. Li; patient states he has an appointment to see Dr. Li tomorrow. Advised patient of signs and symptoms for return to ER; patient verbalized understanding and agrees to plan. ED Treatment Course - LABORATORY CBC & Chemistry Diagram: 11/12/16 18:51 11/12/16 18:51 - ADDITIONAL ORDERS Additional order review: Laboratory Results 11/12/16 11/12/16 18:51 18:51 Sodium 135 L Potassium 4.4 Chloride 96 L Carbon Dioxide 31 Anion Gap 8 BUN 17 Creatinine 1.2 Creat Clearance w eGFR 59.86 Random Glucose 103 Calcium 9.2 Total Bilirubin 0.5 D AST 15 D ALT 24 Alkaline Phosphatase 82 Total Protein 7.8 Albumin 3.8 Urine Color Ltyellow Urine Appearance Slcloudy Urine pH 6.0 Urine Protein Negative Urine Glucose (UA) Negative Urine Ketones Negative Urine Blood 3+ H Urine Nitrite Negative Urine Bilirubin Negative Urine Urobilinogen Negative Ur Leukocyte Esterase 2+ H Urine RBC 22 Urine WBC 9 Ur Epithelial Cells Rare Urine Bacteria Rare Urine Mucus Rare 11/12/16 18:51 RBC 5.11 MCV 89.7 MCHC 34.0 RDW 14.0 MPV 9.5 Neutrophils % 68.3 Lymphocytes % 18.8 Monocytes % 11.7 H Eosinophils % 0.8 Basophils % 0.4 *DC/Admit/Observation/Transfer Diagnosis at time of Disposition: Constipation Qualifiers: Constipation type: other constipation type Qualified Code(s): K59.09 - Other constipation - Discharge Dispostion Disposition: HOME Condition at time of disposition: Stable Admit: No - Prescriptions Prescriptions: Lactulose (Oral Use) [Cephulac -] 20 gm PO DAILY PRN #1 bottle PRN Reason: Constipation - Referrals Referrals: Cherelle Caraballo MD [Primary Care Provider] - El-David Li MD [Staff Physician] - - Patient Instructions Printed Discharge Instructions: DI for Constipation Additional Instructions: [place] se discuti, debe continuar con el Dr. Guillermo srinivasan. Si usted desarrolla cualquier nuevo dolor abdominal, vmitos, fiebre, escalofros o cualquier nuevo o empeoramiento de los sntomas, por favor regrese a la anne marie de emergencias. Print Language: ICELANDIC
== END 2016-11-12 22:01 | disposition home or self-care (01) ==
LOC: JER 16:11
DX: K59.09 Other constipation (principal); E78.00 Pure hypercholesterolemia, unspecified
CPT/HCPCS: 36415; 76775-TC; 80053; 81003; 81015; 85025; 99283-25

== ENCOUNTER 2016-11-16 15:52 | Inpatient (IN) | payer OTHER ==
--- NOTE | 2016-11-16 16:02 | PDOC ---
History of Present Illness - General Chief Complaint: Chest Pain Stated Complaint: CHEST PAIN Time Seen by Provider: 11/16/16 16:01 - History of Present Illness Initial Comments: 11/16/16 16:02 Mr. Joon Ribera is a 71 year old male with a significant past medical history of HTN, hypercholesterolemia, and prostate cancer status post bladder surgery (nov 05) who presents to the emergency department on advice of his PCP for evaluation after he experienced an episode last night of diaphoresis with numbness to both arms and back pain to his Left shoulder lasting approximately 5 -10 minutes. The patient denies chest pain, shortness of breath, headache and dizziness. Denies fever, chills, nausea, vomit, diarrhea and constipation. Denies dysuria, frequency, urgency and hematuria. Allergies: NKDA Past surgical history: Bladder surgery PMD -Cherelle Caraballo Past History - Past Medical History Allergies/Adverse Reactions: Allergies Allergy/AdvReac Type Severity Reaction Status Date / Time No Known Allergies Allergy Verified 11/16/16 16:27 Home Medications: Ambulatory Orders Aspirin [ASA -] 81 mg PO DAILY 11/16/16 Silodosin [Rapaflo] 8 mg PO DAILY 11/16/16 Simvastatin 20 mg PO HS 11/16/16 Anemia: No Asthma: No Cancer: No Cardiac Disorders: No CVA: No COPD: No CHF: No Dementia: No Diabetes: No GI Disorders: No Disorders: No HTN: No Hypercholesterolemia: Yes Liver Disease: No Seizures: No Thyroid Disease: No - Surgical History Abdominal Surgery: Yes (HERNIA) Appendectomy: No Cardiac Surgery: No Cholecystectomy: No Lung Surgery: No Neurologic Surgery: No Orthopedic Surgery: No - Immunization History Immunization Up to Date: Yes - Psycho/Social/Smoking Cessation Hx Anxiety: Yes Suicidal Ideation: No Smoking Status: No Smoking History: Never smoked Number of Cigarettes Smoked Daily: 0 Hx Alcohol Use: No Drug/Substance Use Hx: No Substance Use Type: None Hx Substance Use Treatment: No Review of Systems - Review of Systems Comments:: 11/16/16 16:02 GENERAL/CONSTITUTIONAL: No fever or chills. No weakness. HEAD, EYES, EARS, NOSE AND THROAT: No change in vision. No ear pain or discharge. No sore throat. CARDIOVASCULAR: No chest pain or shortness of breath RESPIRATORY: No cough, wheezing, or hemoptysis. GASTROINTESTINAL: No nausea, vomiting, diarrhea or constipation. GENITOURINARY: No dysuria, frequency, or change in urination. MUSCULOSKELETAL: No joint or muscle swelling or pain. No neck or back pain. SKIN: No rash NEUROLOGIC: No headache, vertigo, loss of consciousness, or change in strength/ sensation. ENDOCRINE: No increased thirst. No abnormal weight change HEMATOLOGIC/LYMPHATIC: No anemia, easy bleeding, or history of blood clots. ALLERGIC/IMMUNOLOGIC: No hives or skin allergy. *Physical Exam - Physical Exam Comments: 11/16/16 16:02 GENERAL: Awake, alert, and fully oriented, in no acute distress HEAD: No signs of trauma, normocephalic, atraumatic EYES: PERRLA, EOMI, sclera anicteric, conjunctiva clear ENT: Auricles normal inspection, hearing grossly normal, nares patent, oropharynx clear without exudates. Moist mucosa NECK: Normal ROM, supple, no lymphadenopathy, JVD, or masses LUNGS: No distress, speaks full sentences, clear to auscultation bilaterally HEART: Regular rate and rhythm, normal S1 and S2, no murmurs, rubs or gallops, peripheral pulses normal and equal bilaterally. ABDOMEN: Soft, nontender, normoactive bowel sounds. No guarding, no rebound. No masses EXTREMITIES: Normal inspection, Normal range of motion, no edema. No clubbing or cyanosis. NEUROLOGICAL: Cranial nerves II through XII grossly intact. Normal speech, normal gait, no focal sensorimotor deficits SKIN: Warm, Dry, normal turgor, no rashes or lesions noted. ED Treatment Course - LABORATORY CBC & Chemistry Diagram: 11/16/16 16:42 11/16/16 16:42 Medical Decision Making - Medical Decision Making 11/16/16 16:59 Mr. Joon Chung is currently resting comfortably but reports an episode of diaphoresis and back pain with bilateral arm tingling yesterday. 11/16/16 18:54 Patient w/ back pain radiating to chest with equal pressures on both arms. Suspicion for aortic dissection. Patient initially scheduled but elevated creatinine as below precluded CTA - elevated d-dimer as below. Ultrasound did not show dissection, MRA discussed with radiologist and ordered to confirm. Laboratory Results - last 24 hr 11/16/16 11/16/16 11/16/16 16:40 16:40 16:42 WBC 7.2 RBC 5.03 Hgb 15.2 Hct 44.4 MCV 88.3 MCH 30.2 MCHC 34.2 RDW 13.6 Plt Count 203 MPV 9.9 Neutrophils % 63.1 Lymphocytes % 22.7 D Monocytes % 12.4 H Eosinophils % 1.4 Basophils % 0.4 INR PTT (Actin FS) D-Dimer 1029 H Sodium Potassium Chloride Carbon Dioxide Anion Gap BUN Creatinine Creat Clearance w eGFR Random Glucose Calcium Total Bilirubin AST ALT Alkaline Phosphatase Creatine Kinase Troponin I B-Natriuretic Peptide Total Protein Albumin Lipase 158 11/16/16 11/16/16 11/16/16 16:42 16:42 16:42 WBC RBC Hgb Hct MCV MCH MCHC RDW Plt Count MPV Neutrophils % Lymphocytes % Monocytes % Eosinophils % Basophils % INR 1.16 H PTT (Actin FS) 28.9 D-Dimer Sodium 134 L Potassium 4.2 Chloride 95 L Carbon Dioxide 30 Anion Gap 9 BUN 21 H D Creatinine 1.6 H D Creat Clearance w eGFR 42.95 Random Glucose 96 Calcium 8.9 Total Bilirubin 0.5 AST 16 ALT 23 Alkaline Phosphatase 79 Creatine Kinase 62 Troponin I 0.08 H D B-Natriuretic Peptide 60.07 Total Protein 7.5 Albumin 3.5 Lipase 11/16/16 21:25 MRA negative for Aortic Dissection. Patient resting comfortably with no pain or current concerning symptoms. With d-dimer elevation to 1029 and troponin elevation to 0.08 there is minimal concern for PE. Patient given 1mg/kg lovenox for prophylaxis. Patient discussed with Dr. Dial for admission and follow-up of possible PE. *DC/Admit/Observation/Transfer Diagnosis at time of Disposition: Chest pain Qualifiers: Chest pain type: unspecified Qualified Code(s): R07.9 - Chest pain, unspecified - Discharge Dispostion Admit: Yes - Referrals Referrals: Cherelle Caraballo MD [Primary Care Provider] -
[2016-11-16 16:26] VITALS: BMI 29.2
[2016-11-16 17:03] LABS: BASOPHIL 0.4 % (0-2.0); EOSINOPHIL 1.4 % (0-4.5); MCH 30.2 pg (25.7-33.7); MCHC 34.2 g/dl (32.0-35.9); MEAN CELL VOLUME 88.3 fl (80-96); MEAN PLT VOLUME 9.9 fl (7.5-11.1); NEUTROPHILS 63.1 % (42.8-82.8); PLATELET COUNT 203 K/MM3 (134-434); RDW 13.6 % (11.9-15.9); WHITE BLOOD COUNT 7.2 K/mm3 (4.0-10.0)
--- NOTE | 2016-11-16 17:10 | PDOC ---
Attending Attestation - Resident Resident Name: Connor Lemus - ED Attending Attestation I have performed the following: I have examined & evaluated the patient, The case was reviewed & discussed with the resident, I agree w/resident's findings & plan, Exceptions are as noted - HPI HPI: 11/16/16 17:05 71 M with h/o BPH, HTN, HLD presents to ER with 1 day of chest pain. Pt states that last night, the pain started in his back. He reports a sharp stabbing pain that radiated from his back into his chest. It persisted until today but has since subsided. He denies any pain currently. Pt denies SOB. Denies leg swelling , denies h/o DVT/PE. Denies recent travel/immobilization. Pt was seen in clinic today and referred to ER for further evaluation. - Physicial Exam PE: 11/16/16 17:09 "GENERAL: Awake, alert, and fully oriented, in no acute distress HEAD: No signs of trauma EYES: PERRLA, EOMI, sclera anicteric, conjunctiva clear ENT: Auricles normal inspection, hearing grossly normal, nares patent, oropharynx clear without exudates. Moist mucosa NECK: Normal ROM, supple, no lymphadenopathy, JVD, or masses LUNGS: Breath sounds equal, clear to auscultation bilaterally. No wheezes, and no crackles HEART: Regular rate and rhythm, normal S1 and S2, no murmurs, rubs or gallops ABDOMEN: Soft, nontender, normoactive bowel sounds. No guarding, no rebound. No masses EXTREMITIES: EQUAL pulses in BUE, Normal range of motion, no edema. No clubbing or cyanosis. No cords, erythema, or tenderness NEUROLOGICAL: Cranial nerves II through XII grossly intact. Normal speech, normal gait SKIN: Warm, Dry, normal turgor, no rashes or lesions noted. " - Medical Decision Making 11/16/16 17:10 71 M with HTN, HLD presenting with chest pain radiating to back, now resolved. Concerning for ACS, as pt has several risk factors. Possible unstable angina given pain at rest. PE unlikely as pt with normal vitals, no SOB, no tachypnea. Will r/o aortic dissection due to radiation of pain towards back. - Labs, trop - CXR - CTPE - Admit
[2016-11-16 17:16] LABS: INR 1.16 (0.82-1.09); PROTHROMBIN TIME (PATIENT) 12.8 SEC (9.98-11.88)
[2016-11-16 17:18] LABS: ACTIVATED PTT 28.9 SECONDS (26.9-34.4)
[2016-11-16 17:27] LABS: ALBUMIN 3.5 g/dl (3.4-5.0); ANION GAP 9 (8-16); BILIRUBIN,TOTAL 0.5 mg/dL (0.2-1.0); CALCIUM 8.9 mg/dL (8.5-10.1); CO2 30 mmol/L (21-32); CREATININE 1.6 mg/dL (0.7-1.3); GLUCOSE,RANDOM 96 mg/dL (74-106); SGOT/AST 16 U/L (15-37); SGPT/ALT 23 U/L (12-78); TOT PROT 7.5 g/dl (6.4-8.2)
[2016-11-16 17:29] LABS: ALK PHOS 79 U/L (45-117); CPK 62 IU/L (39-308); TROPONIN I 0.08 ng/ml (0.00-0.05)
[2016-11-16] MEDS ORDERED: SODIUM CHLORIDE 1,000 ML IV STA (18:51)
[2016-11-16] MEDS ORDERED: ENOXAPARIN NA (PORCINE) 80 MG/0.8 ML DISP.SYRIN SQ SCH (21:30)
[2016-11-16] MEDS ORDERED: ENOXAPARIN NA (PORCINE) 60 MG/0.6 ML DISP.SYRIN SQ ONE (22:22)
[2016-11-16] MEDS ORDERED: ENOXAPARIN NA (PORCINE) 30 MG/0.3 ML DISP.SYRIN SQ ONE (22:22)
[2016-11-17 00:32] LABS: TROPONIN I 0.1 ng/ml (0.00-0.05)
[2016-11-17 07:57] LABS: BASOPHIL 0.5 % (0-2.0); MCH 29.8 pg (25.7-33.7); MCHC 33.7 g/dl (32.0-35.9); MEAN CELL VOLUME 88.5 fl (80-96); MEAN PLT VOLUME 9.8 fl (7.5-11.1); NEUTROPHILS 62.8 % (42.8-82.8); PLATELET COUNT 182 K/MM3 (134-434); RDW 13.3 % (11.9-15.9); WHITE BLOOD COUNT 6.7 K/mm3 (4.0-10.0)
[2016-11-17 08:19] LABS: ANION GAP 9 (8-16); CALCIUM 8.5 mg/dL (8.5-10.1); CHOLESTEROL 175 mg/dL (50-200); CO2 29 mmol/L (21-32); CREATININE 1.2 mg/dL (0.7-1.3); GLUCOSE,RANDOM 98 mg/dL (74-106); SGOT/AST 15 U/L (15-37); SGPT/ALT 21 U/L (12-78)
[2016-11-17 08:21] LABS: ALK PHOS 67 U/L (45-117); BILIRUBIN,TOTAL 0.5 mg/dL (0.2-1.0); CPK 57 IU/L (39-308); TOT PROT 6.4 g/dl (6.4-8.2); TROPONIN I 0.09 ng/ml (0.00-0.05)
--- NOTE | 2016-11-17 09:17 | HP ---
Admitting History and Physical - Admission History of Present Illness: 71 M with h/o BPH, HTN, HLD presents to ER with 1 day of chest pain. Pt states that last night, the pain started in his back. He reports a sharp stabbing pain that radiated from his back into his chest which resolved . some time after had nubness of the left arm then rt shoulder. He was evaluated by dr Caraballo and sent to er. Pt denies SOB or CP at this time . Denies leg swelling, denies h/o DVT/PE. pt with h/o recent bladder surgery - Past Medical History Cardiovascular: Yes: HTN, Hyperlipdemia Pulmonary: No: Asthma, COPD Gastrointestinal: No: GI Bleed Renal/: Yes: BPH, Cancer (bladder ca-s/p turbt) Heme/Onc: No: Anemia - Smoking History Smoking history: Never smoked Have you smoked in the past 12 months: No Aproximately how many cigarettes per day: 0 - Alcohol/Substance Use Hx Alcohol Use: Yes Home Medications - Allergies Allergies/Adverse Reactions: Allergies Allergy/AdvReac Type Severity Reaction Status Date / Time No Known Allergies Allergy Verified 11/16/16 16:27 - Home Medications Home Medications: Ambulatory Orders Aspirin [ASA -] 81 mg PO DAILY 11/16/16 Silodosin [Rapaflo] 8 mg PO DAILY 11/16/16 Simvastatin 20 mg PO HS 11/16/16 Physical Examination Vital Signs: Vital Signs Temperature 98.8 F 11/17/16 03:34 Pulse Rate 87 11/17/16 03:34 Respiratory Rate 18 11/17/16 04:26 Blood Pressure 143/85 11/17/16 03:34 O2 Sat by Pulse Oximetry (%) 98 11/17/16 04:26 Neck: Yes: Supple Cardiovascular: Yes: Regular Rate and Rhythm Respiratory: Yes: Regular, CTA Bilaterally Gastrointestinal: Yes: Normal Bowel Sounds, Soft Labs: CBC, BMP 11/17/16 06:00 11/17/16 06:00 Imaging - Results Cat Scan: Report Reviewed (of abd/pelvis--11/11 --hydronephrosis) MRI: Report Reviewed (hydronepjrosis) Problem List - Problems (1) Chest pain Assessment/Plan: Troponin, BNP 11/16/16 11/16/16 11/16/16 16:42 16:42 23:55 Troponin I 0.08 H D 0.10 H B-Natriuretic Peptide 60.07 11/17/16 06:00 Troponin I 0.09 H B-Natriuretic Peptide on statin/b-karl cardio tele Code(s): R07.9 - CHEST PAIN, UNSPECIFIED Qualifiers: Chest pain type: unspecified Qualified Code(s): R07.9 - Chest pain, unspecified (2) Back pain Assessment/Plan: mri noted xray Code(s): M54.9 - DORSALGIA, UNSPECIFIED Qualifiers: Back pain location: thoracic back pain Chronicity: acute Back pain laterality: unspecified Qualified Code(s): M54.6 - Pain in thoracic spine (3) HTN (hypertension) Assessment/Plan: monitor Code(s): I10 - ESSENTIAL (PRIMARY) HYPERTENSION (4) Diabetes Assessment/Plan: diet new onset Code(s): E11.9 - TYPE 2 DIABETES MELLITUS WITHOUT COMPLICATIONS (5) Hydronephrosis Assessment/Plan: us urology consult Code(s): N13.30 - UNSPECIFIED HYDRONEPHROSIS (6) Bladder cancer Assessment/Plan: urology consult Code(s): C67.9 - MALIGNANT NEOPLASM OF BLADDER, UNSPECIFIED (7) D-dimer, elevated Assessment/Plan: on lovenox ct not done due to renal function pulm consult Code(s): R79.89 - OTHER SPECIFIED ABNORMAL FINDINGS OF BLOOD CHEMISTRY
--- NOTE | 2016-11-17 09:22 | EKG ---
Test Reason : Blood Pressure : / mmHG Vent. Rate : 084 BPM Atrial Rate : 084 BPM P-R Int : 168 ms QRS Dur : 086 ms QT Int : 382 ms P-R-T Axes : 057 -44 012 degrees QTc Int : 451 ms NORMAL SINUS RHYTHM LEFT AXIS DEVIATION ABNORMAL ECG WHEN COMPARED WITH ECG OF 10-NOV-2016 22:39, NO SIGNIFICANT CHANGE WAS FOUND Confirmed by MD JORGE, KRISHNA ([id number]) on 11/17/2016 9:22:28 AM Referred By: Confirmed By:KRISHNA PATEL MD
[2016-11-17] MEDS: METOPROLOL TARTRATE 25 MG TABLET (FP) PO SCH (09:42)
[2016-11-17] MEDS: ENOXAPARIN NA (PORCINE) 100 MG/1 ML DISP.SYRIN SQ SCH ×2 (09:42→21:44)
[2016-11-17] MEDS: ASPIRIN 81 MG CHEWABLE TABLETS PO SCH ×2 (09:42→09:44)
[2016-11-17] MEDS: TAMSULOSIN HCL 0.4 MG CAP.ER.24H (FP) PO SCH (09:42)
[2016-11-17] MEDS: METOPROLOL SUCCINATE 25 MG TAB.SR.24H (FP) PO SCH (10:24)
--- NOTE | 2016-11-17 11:15 | PN ---
Progress Note (short form) - Note Progress Note: PULMONARY CONSULTATION DICTATED 11/17/16 IMP CHEST PAIN SYNDROME/ELEVATED D-DIMER DOUBT PE BUT MUST EXCLUDE IN VIEW OF RECENT SURGERY,BLADDER CA HTN PROSTATE CA HYDRONEPHROSIS PLAN CHEST CTA LOVENOX PENDING RESULTS OF CTA EVALUATION DR JULIAN Problem List - Problems (1) Bladder cancer Code(s): C67.9 - MALIGNANT NEOPLASM OF BLADDER, UNSPECIFIED (2) Chest pain Code(s): R07.9 - CHEST PAIN, UNSPECIFIED Qualifiers: Chest pain type: unspecified Qualified Code(s): R07.9 - Chest pain, unspecified (3) D-dimer, elevated Code(s): R79.89 - OTHER SPECIFIED ABNORMAL FINDINGS OF BLOOD CHEMISTRY (4) HTN (hypertension) Code(s): I10 - ESSENTIAL (PRIMARY) HYPERTENSION (5) Hydronephrosis Code(s): N13.30 - UNSPECIFIED HYDRONEPHROSIS
--- NOTE | 2016-11-17 11:45 | CONSULT ---
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 Patient was seen in the office this week and is being scheduled for intravesical BCG treatments. Patient is doing well urologically. Patient had a CT scan within the last month which is uremarkable for metastatic disease. vss stable; afeb abd-soft, non-tender genitalia-nl phallus/testes imp TCC chest pain plan patient is urologically stable and will commence BCG in one week discussed with family x25 minutes
--- NOTE | 2016-11-17 11:49 | CONS ---
PULMONARY CONSULTATION DATE OF CONSULTATION: 11/17/2016 REFERRING PHYSICIAN: Arelis Dial MD HISTORY OF PRESENT ILLNESS: The patient is a 71-year-old male with past medical history of hypertension, hypercholesterolemia, recently diagnosed prostate cancer; status post bladder surgery on November 05, admitted to [facility] with complaint of back pain as well as chest pain radiating to left shoulder, lasting approximately 5-10 minutes. Patient also complained of some diaphoresis and numbness in both arms. Patient presented to the emergency department. In the ER, he was noted to have an elevated D-dimer. He underwent an MRI of the chest, rule out aortic dissection, which revealed no evidence of dissection and no evidence of aortic aneurysm. Patient was admitted to the telemetry unit for further monitoring. The patient currently denies any chest pain. Denies any shortness of breath. He is a nonsmoker. There is no history of occupational exposure to chemicals or fumes. There is no history of DVT or PE in the past. There is no history of asthma or COPD. PAST MEDICAL HISTORY: Again includes prostate CA, recently diagnosed; status post bladder surgery; and hypertension. REVIEW OF SYSTEMS: No orthopnea. No PND. No cough. No hemoptysis. No chest pain. No palpitations. No abdominal pain. No lower extremity edema. CURRENT MEDICATIONS: Include Flomax, Lovenox, Lopressor, Lipitor, and aspirin. PHYSICAL EXAMINATION: General: The patient is a well-developed, well-nourished male, awake, alert, in no acute distress. Vital Signs: He is afebrile. O2 saturation is 98 on room air, and heart rate is 87. HEENT: Normocephalic, atraumatic. Neck: Supple. Heart: Regular. S1, S2. Chest: Clear. Abdomen: Soft. Bowel sounds are positive. Extremities: No signs of edema. LABORATORY DATA: BUN is 18, creatinine 1.2. BNP is 60. WBC is 6.7, hemoglobin 13.6, hematocrit 40.5, with a platelet count of 182,000. D-dimer is 1029. Chest x-ray reveals no infiltrates, no effusions. IMPRESSION: 1. Chest pain, resolved, with elevated D-dimer. Low likelihood of pulmonary embolism, but cannot completely exclude in view of recent surgery as well as history of prostate cancer. 2. Hypertension. 3. Prostate cancer. PLAN: We will obtain CTA of the chest to rule out PE. Continue Lovenox pending results of the CTA. We will also obtain followup. LAWRENCE JULIAN M.D. IVANA/[id number]
--- NOTE | 2016-11-17 12:34 | CON.CARD ---
Consult Consult Specialty:: Cardiology Referred by:: Dr. Dial Reason for Consultation:: Chest pain? with mildly elevated troponin. - History of Present Illness Chief Complaint: Left upper back (scapular) pain with radiation to left arm. History of Present Illness: 71 year-old man with a PMHx of HTN, HLD, COPD, BPH s/p TURP admitted 11/16/2016 with one episode of left scapular pain with radiation to his left arm. The patient developed left scapular pain with radiation to his left arm night before this admission. His symptoms lasted for 5 minutes and resolved spontaneously. He has no recurrent pain since admission. Patient denies chest pain, SOB, palpitation, syncope, near syncope, edema, orthopnea or PND. He has good exercise tolerance and is able to work 8 block in normal pace without exertional chest pain or SOB. His troponin is mildly elevated. No ECG changes of ischemia. - History Source History Provided By: Patient Limitations to Obtaining History: No Limitations - Past Medical History Cardio/Vascular: Yes: HTN, Hyperlipdemia Pulmonary: No: Asthma, COPD Gastrointestinal: No: GI Bleed Renal/: Yes: BPH, Cancer (bladder ca-s/p turbt) - Alcohol/Substance Use Hx Alcohol Use: Yes - Smoking History Smoking history: Never smoked Have you smoked in the past 12 months: No Aproximately how many cigarettes per day: 0 Home Medications - Allergies Allergies/Adverse Reactions: Allergies Allergy/AdvReac Type Severity Reaction Status Date / Time No Known Allergies Allergy Verified 11/16/16 16:27 - Home Medications Home Medications: Ambulatory Orders Aspirin [ASA -] 81 mg PO DAILY 11/16/16 Silodosin [Rapaflo] 8 mg PO DAILY 11/16/16 Simvastatin 20 mg PO HS 11/16/16 Review of Systems - Review of Systems Constitutional: reports: No Symptoms Eyes: reports: No Symptoms HENT: reports: No Symptoms Neck: reports: No Symptoms Cardiovascular: reports: No Symptoms Respiratory: reports: No Symptoms Gastrointestinal: reports: No Symptoms Genitourinary: reports: No Symptoms Musculoskeletal: reports: Back Pain, Muscle Pain Neurological: reports: No Symptoms Endocrine: reports: No Symptoms Hematology/Lymphatic: reports: No Symptoms Psychiatric: reports: No Symptoms Vital Signs: Vital Signs Temperature 98.8 F 11/17/16 03:34 Pulse Rate 87 11/17/16 03:34 Respiratory Rate 18 11/17/16 04:26 Blood Pressure 143/85 11/17/16 03:34 O2 Sat by Pulse Oximetry (%) 98 11/17/16 04:26 Constitutional: Yes: Well Nourished, No Distress, Calm Eyes: Yes: WNL, Conjunctiva Clear, EOM Intact HENT: Yes: Atraumatic, Normocephalic Neck: Yes: Supple, Trachea Midline Respiratory: Yes: Regular, CTA Bilaterally Gastrointestinal: Yes: WNL, Normal Bowel Sounds, Soft Cardiovascular: Yes: Regular Rate and Rhythm JVD: No Carotid Bruit: No PMI: Non-Displaced Heart Sounds: Yes: S1, S2 Musculoskeletal: Yes: WNL Extremities: Yes: WNL Edema: No Peripheral Pulses WNL: Yes Peripheral Pulses: 2+ Left Carotid, 2+ Right Carotid, 2+ Left Femoral, 2+ Right Femoral, 2+ Left Popliteal, 2+ Right Popliteal, 2+ Left Doralis Pedis, 2+ Right Dorsalis Pedis - Other Data Labs, Other Data: CBC, BMP 11/17/16 06:00 11/17/16 06:00 INR, PTT INR 1.16 (0.82-1.09) H 11/16/16 16:42 Troponin, BNP 11/16/16 11/17/16 23:55 06:00 Troponin I 0.10 H 0.09 H Troponin, BNP 11/16/16 11/17/16 23:55 06:00 Troponin I 0.10 H 0.09 H Imaging - Results EKG: Image Reviewed (Sinus rhythm, LAD, Normal ST-T.) Assessment/Plan 71 year-old man with a PMHx of HTN, HLD, COPD, BPH s/p TURP admitted 11/16/2016 with one episode of left scapular pain with radiation to his left arm. He was found to have mildly elevated troponin: 0.8->0.10->0.9. CK is normal range. His symptoms of angina is very atypical. No ECG changes of ischemia. The etiology of his mildly elevated troponin is not clear, possible due to his mildly impaired renal function. But he has risk factors of CAD. Continue Aspirin 81 mg daily and Simvastatin. Add Metoprolol succinate 25 mg daily for cardiac protection and mild elevated BP. Obtained nuclear stress test for risk stratification.
[2016-11-17] MEDS: ATORVASTATIN CA 20 MG TABLET (FP) PO SCH (21:44)
[2016-11-17] MEDS ORDERED: ATORVASTATIN CA 10 MG TABLET (FP) PO SCH (22:00)
[2016-11-18 08:01] LABS: BASOPHIL 0.7 % (0-2.0); MCH 29.5 pg (25.7-33.7); MEAN CELL VOLUME 89.4 fl (80-96); MEAN PLT VOLUME 10.2 fl (7.5-11.1); NEUTROPHILS 50.2 % (42.8-82.8); PLATELET COUNT 197 K/MM3 (134-434); RDW 13.5 % (11.9-15.9); WHITE BLOOD COUNT 6.3 K/mm3 (4.0-10.0)
[2016-11-18 08:30] LABS: ALBUMIN 3.3 g/dl (3.4-5.0); ANION GAP 10 (8-16); CALCIUM 8.7 mg/dL (8.5-10.1); CO2 30 mmol/L (21-32); GLUCOSE,RANDOM 87 mg/dL (74-106)
[2016-11-18 08:35] LABS: ALK PHOS 75 U/L (45-117); BILIRUBIN,TOTAL 0.7 mg/dL (0.2-1.0); CPK 50 IU/L (39-308); CREATININE 1.1 mg/dL (0.7-1.3); SGOT/AST 12 U/L (15-37); SGPT/ALT 22 U/L (12-78); TOT PROT 7.2 g/dl (6.4-8.2); TROPONIN I 0.04 ng/ml (0.00-0.05)
[2016-11-18] MEDS: METOPROLOL TARTRATE 25 MG TABLET (FP) PO SCH (09:01)
[2016-11-18] MEDS: METOPROLOL SUCCINATE 25 MG TAB.SR.24H (FP) PO SCH (09:01)
[2016-11-18] MEDS: ENOXAPARIN NA (PORCINE) 100 MG/1 ML DISP.SYRIN SQ SCH ×2 (09:01→21:48)
[2016-11-18] MEDS: TAMSULOSIN HCL 0.4 MG CAP.ER.24H (FP) PO SCH (09:01)
[2016-11-18] MEDS: ASPIRIN 81 MG CHEWABLE TABLETS PO SCH (09:01)
--- NOTE | 2016-11-18 09:36 | PN ---
Progress Note, Physician History of Present Illness: pulmonary alert,nad,-cp,-sob - Current Medication List Current Medications: Active Medications Aspirin (Asa -) 81 mg PO DAILY [facility] Last Admin: 11/18/16 09:01 Dose: 81 mg Atorvastatin Calcium (Lipitor -) 20 mg PO HS [facility] Last Admin: 11/17/16 21:44 Dose: 20 mg Enoxaparin Sodium (Lovenox -) 90 mg SQ BID [facility] Last Admin: 11/18/16 09:01 Dose: 90 mg Metoprolol Succinate (Toprol Xl -) 25 mg PO DAILY [facility] Last Admin: 11/18/16 09:01 Dose: 25 mg Metoprolol Tartrate (Lopressor -) 25 mg PO DAILY [facility] Last Admin: 11/18/16 09:01 Dose: 25 mg Tamsulosin HCl (Flomax -) 0.4 mg PO DAILY@0830 [facility] Last Admin: 11/18/16 09:01 Dose: 0.4 mg - Objective Vital Signs: Vital Signs Temperature 98 F 11/18/16 06:00 Pulse Rate 79 11/18/16 06:00 Respiratory Rate 18 11/18/16 06:00 Blood Pressure 125/62 11/18/16 06:00 O2 Sat by Pulse Oximetry (%) 95 11/17/16 21:00 Constitutional: Yes: Well Nourished, Calm Eyes: Yes: WNL HENT: Yes: WNL Neck: Yes: WNL Cardiovascular: Yes: Regular Rate and Rhythm, S1, S2 Respiratory: Yes: CTA Bilaterally Gastrointestinal: Yes: WNL Extremities: Yes: WNL Edema: No Labs: CBC, BMP 11/18/16 06:00 11/18/16 06:00 INR, PTT INR 1.16 (0.82-1.09) H 11/16/16 16:42 Problem List - Problems (1) Bladder cancer Code(s): C67.9 - MALIGNANT NEOPLASM OF BLADDER, UNSPECIFIED (2) Chest pain Code(s): R07.9 - CHEST PAIN, UNSPECIFIED Qualifiers: Chest pain type: unspecified Qualified Code(s): R07.9 - Chest pain, unspecified (3) D-dimer, elevated Code(s): R79.89 - OTHER SPECIFIED ABNORMAL FINDINGS OF BLOOD CHEMISTRY (4) HTN (hypertension) Code(s): I10 - ESSENTIAL (PRIMARY) HYPERTENSION (5) Hydronephrosis Code(s): N13.30 - UNSPECIFIED HYDRONEPHROSIS Assessment/Plan IMP CHEST PAIN SYNDROME/ELEVATED D-DIMER DOUBT PE BUT MUST EXCLUDE IN VIEW OF RECENT SURGERY,BLADDER CA HTN PROSTATE CA HYDRONEPHROSIS PLAN CHEST CTA LOVENOX PENDING RESULTS OF CTA DR JULIAN Problem List - Problems (1) Bladder cancer Code(s): C67.9 - MALIGNANT NEOPLASM OF BLADDER, UNSPECIFIED (2) Chest pain Code(s): R07.9 - CHEST PAIN, UNSPECIFIED Qualifiers: Chest pain type: unspecified Qualified Code(s): R07.9 - Chest pain, unspecified (3) D-dimer, elevated Code(s): R79.89 - OTHER SPECIFIED ABNORMAL FINDINGS OF BLOOD CHEMISTRY (4) HTN (hypertension) Code(s): I10 - ESSENTIAL (PRIMARY) HYPERTENSION (5) Hydronephrosis Code(s): N13.30 - UNSPECIFIED HYDRONEPHROSIS
--- NOTE | 2016-11-18 09:49 | EKG ---
Test Reason : Blood Pressure : / mmHG Vent. Rate : 076 BPM Atrial Rate : 076 BPM P-R Int : 168 ms QRS Dur : 092 ms QT Int : 402 ms P-R-T Axes : 066 -37 024 degrees QTc Int : 452 ms NORMAL SINUS RHYTHM LEFT AXIS DEVIATION INCOMPLETE RIGHT BUNDLE BRANCH BLOCK ABNORMAL ECG WHEN COMPARED WITH ECG OF 16-NOV-2016 16:12, NO SIGNIFICANT CHANGE WAS FOUND Confirmed by MD JORGE, KRISHNA ([id number]) on 11/18/2016 9:48:59 AM Referred By: JEFFREY RAMOS Confirmed By:KRISHNA PATEL MD
--- NOTE | 2016-11-18 13:38 | PN ---
Progress Note, Physician History of Present Illness: NO CP - Current Medication List Current Medications: Active Medications Aspirin (Asa -) 81 mg PO DAILY [facility] Last Admin: 11/18/16 09:01 Dose: 81 mg Atorvastatin Calcium (Lipitor -) 20 mg PO HS [facility] Last Admin: 11/17/16 21:44 Dose: 20 mg Enoxaparin Sodium (Lovenox -) 90 mg SQ BID [facility] Last Admin: 11/18/16 09:01 Dose: 90 mg Metoprolol Succinate (Toprol Xl -) 25 mg PO DAILY [facility] Last Admin: 11/18/16 09:01 Dose: 25 mg Metoprolol Tartrate (Lopressor -) 25 mg PO DAILY [facility] Last Admin: 11/18/16 09:01 Dose: 25 mg Tamsulosin HCl (Flomax -) 0.4 mg PO DAILY@0830 [facility] Last Admin: 11/18/16 09:01 Dose: 0.4 mg - Objective Vital Signs: Vital Signs Temperature 98.7 F 11/18/16 10:00 Pulse Rate 80 11/18/16 10:00 Respiratory Rate 18 11/18/16 10:00 Blood Pressure 132/80 11/18/16 10:00 O2 Sat by Pulse Oximetry (%) 96 11/18/16 10:00 Cardiovascular: Yes: Regular Rate and Rhythm Respiratory: Yes: Regular, CTA Bilaterally Gastrointestinal: Yes: Normal Bowel Sounds, Soft Labs: CBC, BMP 11/18/16 06:00 11/18/16 06:00 INR, PTT INR 1.16 (0.82-1.09) H 11/16/16 16:42 Problem List - Problems (1) Chest pain Assessment/Plan: Troponin, BNP 11/16/16 11/16/16 11/16/16 16:42 16:42 23:55 Troponin I 0.08 H D 0.10 H B-Natriuretic Peptide 60.07 11/17/16 06:00 Troponin I 0.09 H B-Natriuretic Peptide on statin/b-karl cardio noted tele stress test Code(s): R07.9 - CHEST PAIN, UNSPECIFIED Qualifiers: Chest pain type: unspecified Qualified Code(s): R07.9 - Chest pain, unspecified (2) HTN (hypertension) Assessment/Plan: monitor Code(s): I10 - ESSENTIAL (PRIMARY) HYPERTENSION (3) Diabetes Assessment/Plan: diet new onset Code(s): E11.9 - TYPE 2 DIABETES MELLITUS WITHOUT COMPLICATIONS (4) Hydronephrosis Assessment/Plan: us urology consult Code(s): N13.30 - UNSPECIFIED HYDRONEPHROSIS (5) Bladder cancer Assessment/Plan: urology consult Code(s): C67.9 - MALIGNANT NEOPLASM OF BLADDER, UNSPECIFIED (6) D-dimer, elevated Assessment/Plan: on lovenox cta pulm consult==d/w dr dyer Code(s): R79.89 - OTHER SPECIFIED ABNORMAL FINDINGS OF BLOOD CHEMISTRY
[2016-11-18] MEDS: ATORVASTATIN CA 20 MG TABLET (FP) PO SCH (21:56)
[2016-11-18] MEDS ORDERED: ACETAMINOPHEN 325 MG TABLET (FP) PO PRN (23:38)
[2016-11-19] MEDS: TAMSULOSIN HCL 0.4 MG CAP.ER.24H (FP) PO SCH ×2 (08:50→12:16)
--- NOTE | 2016-11-19 11:20 | PN ---
Progress Note, Physician - Current Medication List Current Medications: Active Medications Acetaminophen (Tylenol -) 650 mg PO Q8H PRN PRN Reason: FEVER OR PAIN Aspirin (Asa -) 81 mg PO DAILY [facility] Last Admin: 11/18/16 09:01 Dose: 81 mg Atorvastatin Calcium (Lipitor -) 20 mg PO HS [facility] Last Admin: 11/18/16 21:56 Dose: 20 mg Enoxaparin Sodium (Lovenox -) 90 mg SQ BID [facility] Last Admin: 11/18/16 21:48 Dose: Not Given Metoprolol Succinate (Toprol Xl -) 25 mg PO DAILY [facility] Last Admin: 11/18/16 09:01 Dose: 25 mg Metoprolol Tartrate (Lopressor -) 25 mg PO DAILY [facility] Last Admin: 11/18/16 09:01 Dose: 25 mg Tamsulosin HCl (Flomax -) 0.4 mg PO DAILY@0830 [facility] Last Admin: 11/19/16 08:50 Dose: Not Given - Objective Vital Signs: Vital Signs Temperature 98.1 F 11/19/16 06:00 Pulse Rate 86 11/19/16 06:00 Respiratory Rate 20 11/19/16 06:00 Blood Pressure 125/70 11/19/16 06:00 O2 Sat by Pulse Oximetry (%) 96 11/18/16 10:00 Labs: CBC, BMP INR 1.16 (0.82-1.09) H 11/16/16 16:42 Problem List - Problems (1) Bladder cancer Code(s): C67.9 - MALIGNANT NEOPLASM OF BLADDER, UNSPECIFIED (2) Chest pain Code(s): R07.9 - CHEST PAIN, UNSPECIFIED Qualifiers: Chest pain type: unspecified Qualified Code(s): R07.9 - Chest pain, unspecified (3) D-dimer, elevated Code(s): R79.89 - OTHER SPECIFIED ABNORMAL FINDINGS OF BLOOD CHEMISTRY (4) HTN (hypertension) Code(s): I10 - ESSENTIAL (PRIMARY) HYPERTENSION (5) Hydronephrosis Code(s): N13.30 - UNSPECIFIED HYDRONEPHROSIS Assessment/Plan IMP CHEST PAIN SYNDROME/ELEVATED D-DIMER DOUBT PE BUT MUST EXCLUDE IN VIEW OF RECENT SURGERY,BLADDER CA HTN PROSTATE CA HYDRONEPHROSIS PLAN LOVENOX PENDING RESULTS OF CTA DR JULIAN Problem List - Problems (1) Bladder cancer Code(s): C67.9 - MALIGNANT NEOPLASM OF BLADDER, UNSPECIFIED (2) Chest pain Code(s): R07.9 - CHEST PAIN, UNSPECIFIED Qualifiers: Chest pain type: unspecified Qualified Code(s): R07.9 - Chest pain, unspecified (3) D-dimer, elevated Code(s): R79.89 - OTHER SPECIFIED ABNORMAL FINDINGS OF BLOOD CHEMISTRY (4) HTN (hypertension) Code(s): I10 - ESSENTIAL (PRIMARY) HYPERTENSION (5) Hydronephrosis Code(s): N13.30 - UNSPECIFIED HYDRONEPHROSIS
[2016-11-19] MEDS: METOPROLOL SUCCINATE 25 MG TAB.SR.24H (FP) PO SCH (12:16)
[2016-11-19] MEDS: ASPIRIN 81 MG CHEWABLE TABLETS PO SCH (12:16)
--- NOTE | 2016-11-19 12:17 | DS ---
Physical Examination Vital Signs: Vital Signs Temperature 98.2 F 11/19/16 08:00 Pulse Rate 86 11/19/16 12:00 Respiratory Rate 18 11/19/16 12:00 Blood Pressure 126/84 11/19/16 12:00 O2 Sat by Pulse Oximetry (%) 96 11/18/16 10:00 Findings/Remarks: well alert no chest pain no sob no palpitations Constitutional: Yes: Calm Neck: Yes: Trachea Midline Cardiovascular: Yes: Regular Rate and Rhythm, S1, S2 Respiratory: Yes: CTA Bilaterally Gastrointestinal: Yes: Normal Bowel Sounds, Soft Edema: No Neurological: Yes: Alert, Oriented Labs: CBC, BMP 11/18/16 06:00 11/18/16 06:00 Discharge Summary Reason For Visit: CHEST PAIN Current Active Problems Bladder cancer (Acute) Chest pain (Acute) D-dimer, elevated (Acute) Diabetes (Acute) HTN (hypertension) (Acute) Hydronephrosis (Acute) Hospital Course: - Admission History of Present Illness: 71 M with h/o BPH, HTN, HLD presents to ER with 1 day of chest pain. Pt states that last night, the pain started in his back. He reports a sharp stabbing pain that radiated from his back into his chest which resolved . some time after had nubness of the left arm then rt shoulder. He was evaluated by dr Caraballo and sent to er. Pt denies SOB or CP at this time . Denies leg swelling, denies h/o DVT/PE. 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
[2016-11-19] MEDS: ENOXAPARIN NA (PORCINE) 100 MG/1 ML DISP.SYRIN SQ SCH (12:19)
[2016-11-19] MEDS: METOPROLOL TARTRATE 25 MG TABLET (FP) PO SCH (12:19)
--- NOTE | 2016-11-19 14:22 | PN ---
Progress Note, Physician Chief Complaint: Cardiology FU Complaining of Hematuria No back pain/diaphoresis Telem NSR - Current Medication List Current Medications: Active Medications Acetaminophen (Tylenol -) 650 mg PO Q8H PRN PRN Reason: FEVER OR PAIN Aspirin (Asa -) 81 mg PO DAILY [facility] Last Admin: 11/19/16 12:16 Dose: Not Given Atorvastatin Calcium (Lipitor -) 20 mg PO HS [facility] Last Admin: 11/18/16 21:56 Dose: 20 mg Metoprolol Succinate (Toprol Xl -) 25 mg PO DAILY [facility] Last Admin: 11/19/16 12:16 Dose: 25 mg Tamsulosin HCl (Flomax -) 0.4 mg PO DAILY@0830 [facility] Last Admin: 11/19/16 12:16 Dose: 0.4 mg - Objective Vital Signs: Vital Signs Temperature 98.2 F 11/19/16 08:00 Pulse Rate 86 11/19/16 12:00 Respiratory Rate 18 11/19/16 12:00 Blood Pressure 126/84 11/19/16 12:00 O2 Sat by Pulse Oximetry (%) 98 11/19/16 09:00 Constitutional: Yes: Well Nourished, No Distress, Calm Eyes: Yes: WNL, Conjunctiva Clear HENT: Yes: Atraumatic, Normocephalic Neck: Yes: Supple, Trachea Midline Cardiovascular: Yes: Regular Rate and Rhythm, S1, S2 Respiratory: Yes: Regular, CTA Bilaterally Gastrointestinal: Yes: Normal Bowel Sounds, Soft Edema: No Peripheral Pulses WNL: Yes Labs: CBC, BMP 11/18/16 06:00 11/18/16 06:00 INR, PTT INR 1.16 (0.82-1.09) H 11/16/16 16:42 Laboratory Tests 11/16/16 11/16/16 11/17/16 16:42 23:55 06:00 Creatine Kinase 61 57 Troponin I 0.10 H 0.09 H B-Natriuretic Peptide 60.07 11/18/16 06:00 Creatine Kinase 50 Troponin I 0.04 D B-Natriuretic Peptide - ....Imaging EKG: Image Reviewed Problem List - Problems (1) Chest pain Code(s): R07.9 - CHEST PAIN, UNSPECIFIED Qualifiers: Chest pain type: unspecified Qualified Code(s): R07.9 - Chest pain, unspecified Assessment/Plan 71 M with bladder cancer and transient back and arm pain with elevated TP level. Complaining of Hematuria. Rec: Urology consultation regarding stafety of adding plavix to ASA in this setting and to address hematuria. Echocardiography Pharmacologic Stress testing to assess ischemic burden. Increase Lipitor 80mg daily. Raise Metoprolol XL 50mg daily
[2016-11-19] MEDS ORDERED: METOPROLOL SUCCINATE 50 MG TAB.SR.24H (FP) PO SCH (14:25)
[2016-11-19] MEDS ORDERED: ATORVASTATIN CA 80 MG TABLET (FP) PO SCH (14:25)
[2016-11-19 15:28] VITALS: BP 115/63; PULSE 73; TEMP 98.4
== END 2016-11-19 18:45 | disposition home or self-care (01) | DRG 313 ==
LOC: JER 15:52 → JERBED 21:38 → J4W 11-17 01:37
PROVIDERS: ADMIT Family Medicine; ATTEND Family Medicine
DX: R07.89 Other chest pain (principal); N13.30 Unspecified hydronephrosis; I10 Essential (primary) hypertension; E78.5 Hyperlipidemia, unspecified; C67.9 Malignant neoplasm of bladder, unspecified; N40.0 Benign prostatic hyperplasia without lower urinary tract symptoms; E11.9 Type 2 diabetes mellitus without complications; R79.89 Other specified abnormal findings of blood chemistry; M54.6 Pain in thoracic spine
CPT/HCPCS: 36415; 71020-TC; 71275-TC; 72070-TC; 76775-TC; 76856-TC; 78452-TC; 80053; 80061; 83036; 83690; 83721; 83880; 84443; 84484; 85025; 85379; 85610; 85730; 93005; 93010; 93017; 93970-TC; 99285-25; A9502; C8910